=== PATIENT | female | born 1995 | race Caucasian/White ===

== ENCOUNTER 2020-12-19 13:26 | Inpatient (IN) ==
[2020-12-19 16:03] LABS: Influenza A PCR Negative (Negative); Influenza B PCR Negative (Negative); Resp. Syncytial Virus PCR Negative (Negative)
[2020-12-19 16:04] LABS: SARS-CoV-2 by PCR (In House) Negative (Negative)
[2020-12-19] MEDS ORDERED: Haloperidol Lactate 5 MG/ML VIAL IM PRN (16:42)
[2020-12-19] MEDS ORDERED: Mag Hydrox/Al Hydrox/Simeth 30 ML UDC PO PRN (16:42)
[2020-12-19] MEDS ORDERED: traZODone 50 MG TABLET PO PRN (16:42)
[2020-12-19] MEDS ORDERED: haloperidoL 5 MG TABLET PO PRN (16:42)
[2020-12-19] MEDS ORDERED: MOM Conc 10 ML UD.LIQ PO PRN (16:42)
[2020-12-19] MEDS ORDERED: Nicotine 7 MG PATCH.TD24 TD SCH (18:30)
[2020-12-19] MEDS: QUEtiapine Fumarate 100 MG TABLET PO SCH (21:05)
[2020-12-19] MEDS: hydrOXYzine pamoate 25 MG CAPSULE PO PRN (21:05)
[2020-12-19] MEDS: Topiramate 100 MG TABLET PO SCH (21:05)
[2020-12-19] MEDS: Acetaminophen 325 MG TABLET PO PRN (21:05)
[2020-12-20] MEDS: Topiramate 100 MG TABLET PO SCH ×2 (08:19→20:33)
[2020-12-20] MEDS: Nicotine 7 MG PATCH.TD24 TD SCH (09:01)
[2020-12-20] MEDS: hydrOXYzine pamoate 25 MG CAPSULE PO PRN ×2 (10:45→17:20)
[2020-12-20] MEDS: Acetaminophen 325 MG TABLET PO PRN (17:20)
[2020-12-20] MEDS: QUEtiapine Fumarate 100 MG TABLET PO SCH (20:33)
[2020-12-21] MEDS: Topiramate 100 MG TABLET PO SCH ×2 (08:43→20:24)
[2020-12-21] MEDS: Nicotine 7 MG PATCH.TD24 TD SCH (08:43)
[2020-12-21] MEDS: hydrOXYzine pamoate 25 MG CAPSULE PO PRN ×3 (08:46→20:23)
[2020-12-21] MEDS: Acetaminophen 325 MG TABLET PO PRN (20:24)
[2020-12-21] MEDS: QUEtiapine Fumarate 100 MG TABLET PO SCH (20:24)
[2020-12-22] MEDS: Topiramate 100 MG TABLET PO SCH (08:21)
[2020-12-22] MEDS: Acetaminophen 325 MG TABLET PO PRN (08:22)
[2020-12-22] MEDS: hydrOXYzine pamoate 25 MG CAPSULE PO PRN (08:23)
[2020-12-22] MEDS: Nicotine 7 MG PATCH.TD24 TD SCH (08:49)
[2020-12-22 10:18] VITALS: BP 127/81; PULSE 105; TEMP 98.8; O2SAT 97
== END 2020-12-22 13:50 | disposition home or self-care (01) | DRG 756 ==
LOC: 1ANU 13:26 → EMEROOARM 13:26 → 1ANU 17:35
PROVIDERS: ADMIT Psychiatry & Neurology Psychiatry; ATTEND Psychiatry & Neurology Psychiatry